=== PATIENT | male | born 1945 | race Caucasian/White ===

== ENCOUNTER → 2018-02-06 | Outpatient (CLI) | payer MEDICARE, OTHER | END | disposition home or self-care (01) | LOC: CFH 07:27 | PROVIDERS: ATTEND Family Medicine | DX: K21.9 Gastro-esophageal reflux disease without esophagitis (principal); Z90.49 Acquired absence of other specified parts of digestive tract | CPT/HCPCS: 74241 ==

== ENCOUNTER 2018-08-30 14:11 | Emergency (ER) | payer OTHER ==
[~2018-08-30] VITALS: Ht 170.2 cm; Wt 81.3 kg
[2018-08-30] MEDS ORDERED: OMEP-110 PO (14:42)
[2018-08-30] MEDS ORDERED: TAMS-11 PO (14:42)
[2018-08-30] MEDS ORDERED: MONT10TA9 PO (14:43)
[2018-08-30] MEDS ORDERED: SODIUM CHLORIDE FLUSH 10ML SYR IVF ONE (15:00)
[2018-08-30] MEDS ORDERED: SODIUM CHLORIDE 0.9% 1,000ML IVBOLUS ONE (15:00)
[2018-08-30 15:07] LABS: BASOPHILS # (AUTO) 0.03 x10^3/uL (0-0.1); BASOPHILS % (AUTO) 0 % (0-1); EOSINOPHILS # (AUTO) 0.06 x10^3/uL (0-0.4); EOSINOPHILS % (AUTO) 1 % (1-7); LYMPHOCYTES # (AUTO) 1.44 x10^3/uL (1-3.4); LYMPHOCYTES % (AUTO) 12 % (22-44); MD NO; MEAN CORPUSCULAR HEMOGLOBIN 31.6 pg (27.5-34.5); MEAN CORPUSCULAR HGB CONC 33.2 g/dL (33.2-36.2); MEAN CORPUSCULAR VOLUME 95.3 fL (81-97); MEAN PLATELET VOLUME 7.7 fL (7.4-10.4); MONOCYTES # (AUTO) 1.24 x10^3/uL (0.2-0.8); MONOCYTES % (AUTO) 10 % (2-9); NEUTROPHILS # (AUTO) 9.39 x10^3/uL (1.8-6.8); NEUTROPHILS % (AUTO) 77 % (42-75); PLATELET COUNT 267 x10^3/uL (130-400); RED BLOOD COUNT 4.68 x10^6/uL (4.38-5.82); RED CELL DISTRIBUTION WIDTH 14.4 % (9.4-14.8)
[2018-08-30 15:18] LABS: ALBUMIN 3.9 g/dL (3.4-5.0); ANION GAP 5 mmol/L (5-15); CALCIUM 8.8 mg/dL (8.5-10.1); CHLORIDE 109 mmol/L (98-107); CREATININE 1.43 mg/dL (0.7-1.3)
[2018-08-30 15:22] LABS: TROPONIN I < 0.015 ng/mL (0.000-0.045)
[2018-08-30] MEDS ORDERED: ATOR40TA78 PO (15:24)
[2018-08-30] MEDS ORDERED: METO25TA35 PO (15:24)
[2018-08-30] MEDS ORDERED: LOSA50TA14 PO (15:24)
[2018-08-30] MEDS ORDERED: FLUT9.9S16 NAS (15:25)
[2018-08-30] MEDS ORDERED: METOPROLOL 1 MG/ML, 5ML ONE ×2 (15:58→16:25)
[2018-08-30] MEDS: METOPROLOL 1 MG/ML, 5ML IVPush PRN ×2 (16:06→16:28)
--- NOTE | 2018-08-30 16:19 | NUR ---
Provided medication per [facility] with out complications.
--- NOTE | 2018-08-30 16:36 | NUR ---
LATE NOTE ENTRY FOR 1424: Pt brought in by EMS from urgent care with c/o SVT and rapid heart rate. EMS provided 500 mL of normal saline and HR came down to 170's, then pt recieved from EMS 6 mg of Adenosine and HR came down to 120's. Pt denies cp, sob, n/v/d. Pt states, "I can feel my heart racing. This has happened a few times before, I have severe anxiety. My left foot hurts,k and I went to urgent care to find out if it was broken or if I have gout." Pt connected to all monitors. Pt is tachycardic in the 120-130's and is otherwise asymptomatic. NADN. Pt has PIV placed in right AC prior to arrival. No needs expressed at this time. Pt's is at bedside. Call light and urinal are within reach. Blankets provided for comfort measures.
--- NOTE | 2018-08-30 16:38 | NUR ---
Provided second dose of medicaiton per [facility]. Pt tolerated with out complications.
[2018-08-30] MEDS ORDERED: LORazepam 2 MG/ML, 1ML IVPush STA (16:46)
[2018-08-30] MEDS ORDERED: LORazepam 2 MG/ML, 1ML ONE (16:49)
[2018-08-30 18:11] VITALS: BP 142/86
--- NOTE | 2018-08-30 18:12 | NUR ---
Patient given discharge instructions and Rx, they have confirmed that they understand the instructions. Patient ambulatory with steady gait.
== END 2018-08-30 18:12 | disposition home or self-care (01) ==
LOC: ED 17:30
DX: F41.1 Generalized anxiety disorder (principal); I10 Essential (primary) hypertension; M79.672 Pain in left foot; R00.0 Tachycardia, unspecified
CPT/HCPCS: 36415; 71045; 73630; 80048; 82040; 84484; 84550; 85025; 93005; 96374; 96375; 99284; J2060; J7030

== ENCOUNTER → 2018-09-22 | Outpatient (CLI) | payer OTHER ==
[~2018-09-22] MED LIST: ATOR40TA78 PO; FLUT9.9S16 NAS; LOSA50TA14 PO; METO25TA35 PO; MONT10TA9 PO; OMEP-110 PO; TAMS-11 PO
== END | disposition home or self-care (01) ==
LOC: CVU 08:24
PROVIDERS: ATTEND Internal Medicine Cardiovascular Disease
DX: I35.0 Nonrheumatic aortic (valve) stenosis (principal); I10 Essential (primary) hypertension; I49.9 Cardiac arrhythmia, unspecified
CPT/HCPCS: 93306